=== PATIENT | male | born 1965 | race Caucasian/White ===

== ENCOUNTER 2022-10-14 19:11 | Emergency (ER) | payer MEDICAID, SELFPAY ==
--- NOTE | ~2022-10-14 | XR_ITS ---
EXAMINATION: XR CHEST CLINICAL INFORMATION: Chest pain COMPARISON: None TECHNIQUE: 2 views of the chest were obtained. FINDINGS: Lungs are clear. No focal consolidation or mass. Normal pulmonary vascularity. No pleural effusion or pneumothorax. Normal heart size. No acute osseous abnormality. XR/XR chest 2V IMPRESSION: No acute pulmonary disease.
--- NOTE | ~2022-10-14 | CT_ITS ---
EXAMINATION: CTA CHEST, ABDOMEN AND PELVIS WITH CONTRAST CLINICAL INFORMATION: Reason for Exam cp radiating to shoulder, hx pe, fm hx aneurysm COMPARISON: No pertinent prior studies are available for comparison. TECHNIQUE: Multidetector volumetric imaging was performed from the thoracic inlet through the pubic symphysis following administration of 90 mL of Omnipaque 350. Sagittal and coronal reformatted images were obtained on the technologist's workstation. Additional 2-D coronal and sagittal reformatted images and axial 3-D maximum intensity projection MIP images are generated on the CT workstation. This CT examination was performed using dose optimization techniques as appropriate, variously including the following: *Automated exposure control *Adjustment of mA and/or kV according to patient size (this includes techniques or standardized protocols for targeted exams where dose is matched to indication/reason for exam; i.e. extremities or head) *Use of iterative reconstruction technique DLP: 773 mGy-cm QUALITY OF STUDY: The bolus is satisfactory for diagnosis of pulmonary emboli. VASCULAR FINDINGS: The thoracic aorta appears unremarkable without evidence of aneurysm, dissection or intramural hematoma. There is limitation of evaluation of the aortic root because of marked motion artifact as this was not a cardiac gated study. Three-vessel branching pattern of the aortic arch is seen with widely patent great vessels. The abdominal aorta and visualized iliofemoral vessels all appear no aortic aneurysm dissection or intramural hematoma is seen. The celiac SMA and ALISSA are all widely patent. There is a single right-sided renal artery and 2 renal arteries on the left that are all widely patent. The pulmonary arteries appear normal and no central or segmental pulmonary emboli are seen. NONVASCULAR FINDINGS: CHEST: Lung: Some right basilar scarring is present. There is a tiny 2 mm perifissural right lower lobe nodule (9:280). No consolidations or worrisome lung masses are seen. Mediastinum: The mediastinum is unremarkable. The central vascular structures are unremarkable. No hilar or mediastinal lymphadenopathy. Pericardium/Pleura: No significant effusion. No pleural mass or thickening. Chest Wall/Axilla: Unremarkable ABDOMEN/PELVIS: Peritoneal Space: No significant free air or free fluid identified. Liver, Gallbladder, Biliary Tree: The liver is normal in size, shape, and attenuation. No focal hepatic lesion or biliary ductal dilatation is present. The gallbladder is unremarkable with no evidence of radiopaque gallstones, gallbladder wall thickening, or obvious pericholecystic inflammatory changes. Pancreas: Unremarkable Spleen: Unremarkable Adrenal Glands: Unremarkable Kidneys and Ureters: The kidneys are normal in size, shape, and attenuation. No hydronephrosis, hydroureter, or calculi seen. No perinephric stranding. Bladder: Unremarkable Gastrointestinal Tract: The small and large bowel are unremarkable. The appendix is is not seen but there is no evidence of appendicitis. Abdominal Wall: No significant hernia is appreciated. Lymph Nodes: No lymphadenopathy. PELVIC VISCERA: Unremarkable OSSEUS STRUCTURES: Mild degenerative changes are noted in the spine. No bony destructive lesions are seen. CT/CT angio chest PE protocol IMPRESSION: 1. No evidence of aortic aneurysm, dissection or intramural hematoma. 2. No evidence of pulmonary emboli. 3. No significant abnormality is seen in the chest, abdomen or pelvis. 4. 2 mm right lower lobe nodule needs no further Fleischner guidelines were followed. VTE: Negative
[2022-10-14 20:23] VITALS: BP 183/113; PULSE 98; RESP 20; TEMP 36.8; O2SAT 98; BMI 28.0
--- NOTE | 2022-10-14 20:27 | ED_ITS ---
HPI - General Adult General Chief complaint: Chest Pain Stated complaint: ?Lung blood clot/Pain Time Seen by Provider: 10/14/22 21:08 Source: patient Mode of arrival: ambulatory Limitations: no limitations Related Data Previous Rx's Medication Instructions Recorded cyclobenzaprine 10 mg tablet 10 mg PO TID PRN muscle spasm #14 10/14/22 tabs Allergies Allergy/AdvReac Type Severity Reaction Status Date / Time allopurinol [ALLOPURINOL] Allergy Intermediate UNKNOWN Unverified 08/04/20 15:42 codeine [CODEINE] Allergy Intermediate ITCHY Unverified 08/04/20 15:42 Codeine Sulfate Allergy Unknown Uncoded 01/09/12 00:00 PMFSH Social History Social History Advance Directives: No Advance Directives Information Provided: No Physical Exam ED Vital Signs: Vital Signs - 24 hr 10/14/22 20:23 10/14/22 23:36 10/15/22 00:24 Temperature 98.3 F 98.1 F 97.9 F Pulse Rate 98 93 78 Respiratory Rate 20 13 14 Blood Pressure 183/113 H 165/95 H 132/82 Pulse Oximetry 98 97 96 Oxygen Delivery Method Room Air Room Air BMI result Body Mass Index 28.0 Course Course Course Narrative: RME completed by Lola Teran PA-C. Patient is a 56 year old male with a histroy of PE presenting to the emergency department with left sided chest pain. CBC, CMP, d dimer, chest x-ray, ekg, and COVID/Influenza/RSV swab ordered. Pat ient to be placed back in the waiting room pending results and bed availability. Patient seen and discharged by [facility] who created and completed a separate note. Medications Administered Discontinued Medications Generic Name Dose Route Start Last Admin Trade Name Freq PRN Reason Stop Dose Admin Cyclobenzaprine HCl 10 mg 10/14/22 23:55 10/15/22 00:27 Cyclobenzaprine Hcl 10 Mg Tablet PO 10/14/22 23:56 10 mg ONCE ONE Administration Iohexol 100 ml 10/14/22 23:02 10/14/22 23:02 Iohexol 350 Mg/Ml 100 Ml Infus..Btl IV 10/14/22 23:03 90 ml ONCE ONE Administration Medical Decision Making Lab Data Result diagrams: 10/14/22 20:42 10/14/22 20:42 Labs: Lab Results 10/14/22 10/14/22 10/14/22 Range/Units 20:42 20:42 20:42 WBC 9.4 (4.8-10.8) X10*3/uL RBC 5.69 (4.60-5.80) X10*6/uL Hgb 16.9 (14.0-18.0) g/dl Hct 49.2 (42.0-52.0) % MCV 86.5 (80.0-98.0) fL MCH 29.7 (27.0-33.0) pg MCHC 34.3 (31.0-36.0) g/dl RDW 12.9 (11.0-16.0) % Plt Count 183 (160-400) X10*3/uL MPV 8.6 L (9.4-12.4) fL Immature Gran % (Auto) 0.3 (0.0-0.4) % Neut % (Auto) 75.5 H (45-73) % Lymph % (Auto) 13.1 L (20-40) % [place] % (Auto) 7.6 (2-11) % Eos % (Auto) 3.1 (0-4) % Baso % (Auto) 0.4 (0-2) % Lymph # (Auto) 1.2 (1.2-4.9) X10*3/uL [place] # (Auto) 0.7 (0.1-1.2) X10*3/uL Eos # (Auto) 0.3 (0.0-0.4) X10*3/uL Baso # (Auto) 0.0 (0.0-0.2) X10*3/uL Abs Immat Gran (auto) 0.03 (0.00-0.03) X10*3/uL Absolute Neuts (auto) 7.1 (2.0-8.3) x10*3/uL Absolute Nucleated RBC 0.000 (0.0-0.012) X10*3/uL Nucleated RBC % (auto) 0.0 (0.0-0.2) /100WBC D-Dimer High Sensitivty < 150 NG/ML Sodium 139 (135-145) mmol/L Potassium 4.3 (3.3-5.1) mmol/L Chloride 101 (96-108) mmol/L Carbon Dioxide 25 (22-29) mmol/L Anion Gap 17 (12-20) BUN 16 (9-16) mg/dL Creatinine 1.25 (0.5-1.4) mg/dL Estim Creat Clear Calc 73.4 Estimated GFR > 60 Random Glucose 118 H (60-115) mg/dL Calcium 9.8 (8.4-10.2) mg/dL Total Bilirubin 0.5 (0.0-1.0) mg/dL AST 25 (5-37) U/L ALT 21 (0-40) U/L Alkaline Phosphatase 83 (39-117) U/L Troponin I High Sens (<3.5-35.0) ng/L Total Protein 8.0 (6.5-8.0) g/dL Albumin 4.8 (3.5-5.0) g/dL Influenza Type A (PCR) (Negative) Influenza Type B (PCR) (Negative) RSV RNA Qual (PCR) (Negative) SARS-CoV-2 RNA (RT-PCR) (Negative) 10/14/22 10/14/22 Range/Units 20:42 20:42 WBC (4.8-10.8) X10*3/uL RBC (4.60-5.80) X10*6/uL Hgb (14.0-18.0) g/dl Hct (42.0-52.0) % MCV (80.0-98.0) fL MCH (27.0-33.0) pg MCHC (31.0-36.0) g/dl RDW (11.0-16.0) % Plt Count (160-400) X10*3/uL MPV (9.4-12.4) fL Immature Gran % (Auto) (0.0-0.4) % Neut % (Auto) (45-73) % Lymph % (Auto) (20-40) % [place] % (Auto) (2-11) % Eos % (Auto) (0-4) % Baso % (Auto) (0-2) % Lymph # (Auto) (1.2-4.9) X10*3/uL [place] # (Auto) (0.1-1.2) X10*3/uL Eos # (Auto) (0.0-0.4) X10*3/uL Baso # (Auto) (0.0-0.2) X10*3/uL Abs Immat Gran (auto) (0.00-0.03) X10*3/uL Absolute Neuts (auto) (2.0-8.3) x10*3/uL Absolute Nucleated RBC (0.0-0.012) X10*3/uL Nucleated RBC % (auto) (0.0-0.2) /100WBC D-Dimer High Sensitivty NG/ML Sodium (135-145) mmol/L Potassium (3.3-5.1) mmol/L Chloride (96-108) mmol/L Carbon Dioxide (22-29) mmol/L Anion Gap (12-20) BUN (9-16) mg/dL Creatinine (0.5-1.4) mg/dL Estim Creat Clear Calc Estimated GFR Random Glucose (60-115) mg/dL Calcium (8.4-10.2) mg/dL Total Bilirubin (0.0-1.0) mg/dL AST (5-37) U/L ALT (0-40) U/L Alkaline Phosphatase (39-117) U/L Troponin I High Sens < 3.5 (<3.5-35.0) ng/L Total Protein (6.5-8.0) g/dL Albumin (3.5-5.0) g/dL Influenza Type A (PCR) NEGATIVE (Negative) Influenza Type B (PCR) NEGATIVE (Negative) RSV RNA Qual (PCR) NEGATIVE (Negative) SARS-CoV-2 RNA (RT-PCR) NEGATIVE (Negative) Discharge Plan Discharge Clinical Impression: Chest pain, Costalchondritis, Muscle strain Patient Disposition: Home, Self-Care Instructions: Chest Pain (ED), Costochondritis (ED), Noncardiac Chest Pain (ED), Chest Wall Pain (ED) Additional Instructions: You were evaluated for chest pain radiating to your scapula and shoulder. CT PE and abdominal angio study is negative for pulmonary embolisms and aneurysms. Your CT scans were negative for acute findings requiring emergent intervention. Your injuries are consistent with a muscular skeletal strain. Please take Flexeril 10 mg every 8 hours as needed for muscle spasms. Follow-up with primary care physician as needed. Return to the emergency department for any new, concerning, or worsening symptoms. Prescriptions: New cyclobenzaprine 10 mg tablet 10 mg PO TID PRN (Reason: muscle spasm) Qty: 14 0RF Interventions: ED Discharge Assessment Last Done: 10/15/22 00:32 Discharge Date/Time: 10/15/22 00:33
--- NOTE | 2022-10-14 20:27 | ECG_ITS ---
Test Reason : CHEST PAIN Blood Pressure : / mmHG Vent. Rate : 084 BPM Atrial Rate : 084 BPM P-R Int : 158 ms QRS Dur : 084 ms QT Int : 366 ms P-R-T Axes : 057 001 040 degrees QTc Int : 432 ms Normal sinus rhythm Minimal voltage criteria for LVH, may be normal variant ( R in aVL ) Borderline ECG No previous ECGs available Referred By: Lola Teran Electronically Signed By:DEYANIRA EPPERSON MD
[2022-10-14 20:47] LABS: MANUAL DIFF FLAG NO
[2022-10-14 20:50] LABS: Basophils Percent Auto 0.4 % (0-2); Eosinophils Absolute Auto 0.3 X10*3/uL (0.0-0.4); Eosinophils Percent Auto 3.1 % (0-4); Hematocrit 49.2 % (42.0-52.0); Hemoglobin 16.9 g/dl (14.0-18.0); Imm Gran Abs Auto 0.03 X10*3/uL (0.00-0.03); Imm Gran Pct Auto 0.3 % (0.0-0.4); Lymphocytes Absolute Auto 1.2 X10*3/uL (1.2-4.9); Lymphocytes Percent Auto 13.1 % (20-40); Mean Corpuscular HGB Conc 34.3 g/dl (31.0-36.0); Mean Corpuscular Hemoglobin 29.7 pg (27.0-33.0); Mean Corpuscular Volume 86.5 fL (80.0-98.0); Mean Platelet Volume 8.6 fL (9.4-12.4); Monocytes Absolute Auto 0.7 X10*3/uL (0.1-1.2); Monocytes Percent Auto 7.6 % (2-11); Neutrophils Absolute Auto 7.1 x10*3/uL (2.0-8.3); Neutrophils Percent Auto 75.5 % (45-73); Platelet Count 183 X10*3/uL (160-400); Red Blood Count 5.69 X10*6/uL (4.60-5.80); Red Cell Distribution Width 12.9 % (11.0-16.0); White Blood Count 9.4 X10*3/uL (4.8-10.8)
[2022-10-14 21:06] LABS: Alanine Aminotransferase 21 U/L (0-40); Albumin Level 4.8 g/dL (3.5-5.0); Alkaline Phosphatase 83 U/L (39-117); Anion Gap 17 (12-20); Aspartate Amino Transferase 25 U/L (5-37); Bilirubin Total 0.5 mg/dL (0.0-1.0); Blood Urea Nitrogen 16 mg/dL (9-16); Calcium 9.8 mg/dL (8.4-10.2); Carbon Dioxide 25 mmol/L (22-29); Chloride 101 mmol/L (96-108); Creatinine Clr Calc Pharmacy 73.4; Estimated Glomerular Filt Rate > 60; Glucose Random 118 mg/dL (60-115); Potassium 4.3 mmol/L (3.3-5.1); Sodium 139 mmol/L (135-145)
[2022-10-14 21:08] LABS: Troponin-I High Sensitivity < 3.5 ng/L (<3.5-35.0)
[2022-10-14 21:09] LABS: D Dimer High Sensitivity < 150 NG/ML
--- NOTE | 2022-10-14 21:09 | ED.CHESTPAIN ---
HPI - Chest Pain General Chief Complaint: Chest Pain Stated Complaint: ?Lung blood clot/Pain Time Seen by Provider: 10/14/22 21:08 Source: patient Mode of arrival: ambulatory Limitations: no limitations History of Present Illness HPI narrative: 56-year-old male presents with sharp progressively worsening left-sided chest pain radiating to his scapula and shoulder. States the pain started while he was working on the [employer], he has a concern because he does have past medical history of pulmonary embolism, and a significant family history of aneurysm. He states pain is worse when he is laying down, on movement, and inspiration. MD complaint: chest pain and chest discomfort Pertinent past history: other (History PE) Onset (ago): day(s) (2) Timing of current episode: constant and increasing Prior episodes: Yes Pain location: left chest Pain radiation: left arm, left shoulder and left scapula Severity: severe Pain scale (0-10): 9 Quality: heaviness, sharp and tearing Relieving factors: nothing Exacerbating factors: inspiration and movement Context: history of DVT/PE Treatment prior to arrival: none Risk Factors Coronary artery disease risk factors: hypertension Thoracic aortic dissection risk factors: family history of thoracic aortic aneurysm Pulmonary embolism risk factors: history of pulmonary embolism Related Data Previous Rx's Medication Instructions Recorded cyclobenzaprine 10 mg tablet 10 mg PO TID PRN muscle spasm #14 10/14/22 tabs Allergies Allergy/AdvReac Type Severity Reaction Status Date / Time allopurinol [ALLOPURINOL] Allergy Intermediate UNKNOWN Unverified 08/04/20 15:42 codeine [CODEINE] Allergy Intermediate ITCHY Unverified 08/04/20 15:42 Codeine Sulfate Allergy Unknown Uncoded 01/09/12 00:00 Review of Systems Review of Systems: Constitutional: No Fever, No Chills ENT/Mouth: No Ear Pain, No Hoarseness, No sore throat Eyes: No Eye Pain, No Swelling, No Redness, No Foreign Body Cardiovascular: Positive Chest Pain, No SOB Respiratory: No Cough, No Dyspnea Gastrointestinal: No Nausea, No Vomiting, No Diarrhea, No abdominal Pain Genitourinary: No Dysuria, No Hematuria Musculoskeletal: positive shoulder and scapula pain, No Myalgias, No Joint Swelling Skin: No Skin lacerations, No rash Neuro: No Weakness, No Numbness, No Paresthesias, No Loss of Consciousness, No Dizziness, No Headache Psych: No Anxiety/Panic, No Depression Heme/Lymph: no easy bruising, no Lymphadenopathy Endocrine: No Polyuria, No Polydipsia Yes all other systems are reviewed and are negative [facility] Past Medical History Attestation statement: The following information was validated with the patient. Source: old records reviewed Social History Social History Advance Directives: No Advance Directives Information Provided: No Physical Exam Vital Signs: Vital Signs: Last Vital Signs Temp 98.3 F 10/14/22 20:23 Pulse 98 10/14/22 20:23 Resp 20 10/14/22 20:23 BP 183/113 H 10/14/22 20:23 Pulse Ox 98 10/14/22 20:23 O2 Del Method 10/14/22 20:23 BMI result Body Mass Index 28.0 Appearance: Alert. Oriented X3. Mild distress. Eyes: Pupils equal, round and reactive to light. EOMI. ENT: Pharynx normal. Neck: Normal inspection. Neck supple. No nuchal rigidity. CVS: Normal heart rate and rhythm. Pulses normal. Respiratory: No respiratory distress. Breath sounds normal. Abdomen: Soft and nontender. Skin: Skin warm and dry. Normal skin color. Normal skin turgor. Extremities: No lower extremity edema. Full range of motion to all extremities. Strength 5/5. Gait well-balanced well coordinated. Neuro: No motor deficit. No sensory deficit. Cranial nerves 2-12 intact. Course Course Course Narrative: 56-year-old male presents with left-sided chest pain radiating to his scapula and shoulder. States that it feels like a ripping sharp pain that worsens as he is laying down, on inspiration and on movement. While it is highly likely that this could be of muscular skeletal injury, he does have a significant family history of aneurysm, and blood clot, he also has had pulmonary embolism in his 30s. He is hypertensive, and obese. He is tachycardic on presentation with a heart rate on exertion in the 110s, and at rest in the 90s. Labs were drawn while patient was in the emergency department waiting room, does have a negative troponin with relatively normal lab values. Wells PE score 6. Will order CT PE and aortic aneurysm study. 23:30 CT PE and CTA abdomen pelvis negative for acute findings. Will treat with ibuprofen and Flexeril. Patient agrees to follow-up with primary care physician. Patient verbalized understanding of and agrees plan of care discharge home. Verbalized understanding of signs and symptoms indicating need for emergent intervention. Medications Administered Discontinued Medications Generic Name Dose Route Start Last Admin Trade Name Freq PRN Reason Stop Dose Admin Iohexol 100 ml 10/14/22 23:02 10/14/22 23:02 Iohexol 350 Mg/Ml 100 Ml Infus..Btl IV 10/14/22 23:03 90 ml ONCE ONE Administration MDM - Chest Pain Differential Diagnosis Differential diagnosis: Likely fracture of rib, pneumothorax, unstable angina pectoris, atypical chest pain, st elevation myocardial infarction, costochondritis and chest pain Differential diagnosis: Aneurysm, PE Medical Records Data Attestation: I reviewed the patient's medical records. Lab Data Attestation: I reviewed the patient's lab results. Result diagrams: 10/14/22 20:42 10/14/22 20:42 Labs: Lab Results 10/14/22 10/14/22 10/14/22 Range/Units 20:42 20:42 20:42 WBC 9.4 (4.8-10.8) X10*3/uL RBC 5.69 (4.60-5.80) X10*6/uL Hgb 16.9 (14.0-18.0) g/dl Hct 49.2 (42.0-52.0) % MCV 86.5 (80.0-98.0) fL MCH 29.7 (27.0-33.0) pg MCHC 34.3 (31.0-36.0) g/dl RDW 12.9 (11.0-16.0) % Plt Count 183 (160-400) X10*3/uL MPV 8.6 L (9.4-12.4) fL Immature Gran % (Auto) 0.3 (0.0-0.4) % Neut % (Auto) 75.5 H (45-73) % Lymph % (Auto) 13.1 L (20-40) % [place] % (Auto) 7.6 (2-11) % Eos % (Auto) 3.1 (0-4) % Baso % (Auto) 0.4 (0-2) % Lymph # (Auto) 1.2 (1.2-4.9) X10*3/uL [place] # (Auto) 0.7 (0.1-1.2) X10*3/uL Eos # (Auto) 0.3 (0.0-0.4) X10*3/uL Baso # (Auto) 0.0 (0.0-0.2) X10*3/uL Abs Immat Gran (auto) 0.03 (0.00-0.03) X10*3/uL Absolute Neuts (auto) 7.1 (2.0-8.3) x10*3/uL Absolute Nucleated RBC 0.000 (0.0-0.012) X10*3/uL Nucleated RBC % (auto) 0.0 (0.0-0.2) /100WBC D-Dimer High Sensitivty < 150 NG/ML Sodium 139 (135-145) mmol/L Potassium 4.3 (3.3-5.1) mmol/L Chloride 101 (96-108) mmol/L Carbon Dioxide 25 (22-29) mmol/L Anion Gap 17 (12-20) BUN 16 (9-16) mg/dL Creatinine 1.25 (0.5-1.4) mg/dL Estim Creat Clear Calc 73.4 Estimated GFR > 60 Random Glucose 118 H (60-115) mg/dL Calcium 9.8 (8.4-10.2) mg/dL Total Bilirubin 0.5 (0.0-1.0) mg/dL AST 25 (5-37) U/L ALT 21 (0-40) U/L Alkaline Phosphatase 83 (39-117) U/L Troponin I High Sens (<3.5-35.0) ng/L Total Protein 8.0 (6.5-8.0) g/dL Albumin 4.8 (3.5-5.0) g/dL Influenza Type A (PCR) (Negative) Influenza Type B (PCR) (Negative) RSV RNA Qual (PCR) (Negative) SARS-CoV-2 RNA (RT-PCR) (Negative) 10/14/22 10/14/22 Range/Units 20:42 20:42 WBC (4.8-10.8) X10*3/uL RBC (4.60-5.80) X10*6/uL Hgb (14.0-18.0) g/dl Hct (42.0-52.0) % MCV (80.0-98.0) fL MCH (27.0-33.0) pg MCHC (31.0-36.0) g/dl RDW (11.0-16.0) % Plt Count (160-400) X10*3/uL MPV (9.4-12.4) fL Immature Gran % (Auto) (0.0-0.4) % Neut % (Auto) (45-73) % Lymph % (Auto) (20-40) % [place] % (Auto) (2-11) % Eos % (Auto) (0-4) % Baso % (Auto) (0-2) % Lymph # (Auto) (1.2-4.9) X10*3/uL [place] # (Auto) (0.1-1.2) X10*3/uL Eos # (Auto) (0.0-0.4) X10*3/uL Baso # (Auto) (0.0-0.2) X10*3/uL Abs Immat Gran (auto) (0.00-0.03) X10*3/uL Absolute Neuts (auto) (2.0-8.3) x10*3/uL Absolute Nucleated RBC (0.0-0.012) X10*3/uL Nucleated RBC % (auto) (0.0-0.2) /100WBC D-Dimer High Sensitivty NG/ML Sodium (135-145) mmol/L Potassium (3.3-5.1) mmol/L Chloride (96-108) mmol/L Carbon Dioxide (22-29) mmol/L Anion Gap (12-20) BUN (9-16) mg/dL Creatinine (0.5-1.4) mg/dL Estim Creat Clear Calc Estimated GFR Random Glucose (60-115) mg/dL Calcium (8.4-10.2) mg/dL Total Bilirubin (0.0-1.0) mg/dL AST (5-37) U/L ALT (0-40) U/L Alkaline Phosphatase (39-117) U/L Troponin I High Sens < 3.5 (<3.5-35.0) ng/L Total Protein (6.5-8.0) g/dL Albumin (3.5-5.0) g/dL Influenza Type A (PCR) NEGATIVE (Negative) Influenza Type B (PCR) NEGATIVE (Negative) RSV RNA Qual (PCR) NEGATIVE (Negative) SARS-CoV-2 RNA (RT-PCR) NEGATIVE (Negative) Imaging Data Chest x-ray: Attestation: I personally reviewed and interpreted this imaging study as follows: Radiologist's impression: EXAMINATION: XR CHEST CLINICAL INFORMATION: Chest pain COMPARISON: None TECHNIQUE: 2 views of the chest were obtained. FINDINGS: Lungs are clear. No focal consolidation or mass. Normal pulmonary vascularity.? No pleural effusion or pneumothorax. Normal heart size. No acute osseous abnormality. XR/XR chest 2V IMPRESSION: No acute pulmonary disease. CT PE, CT angio abdomen pelvis: Attestation: I personally reviewed and interpreted this imaging study as follows: Radiologist's impression: QUALITY OF STUDY: The bolus is satisfactory for diagnosis of pulmonary emboli. VASCULAR FINDINGS: The thoracic aorta appears unremarkable without evidence of aneurysm, dissection or intramural hematoma. There is limitation of evaluation of the aortic root because of marked motion artifact as this was not a cardiac gated study. Three-vessel branching pattern of the aortic arch is seen with widely patent great vessels. The abdominal aorta and visualized iliofemoral vessels all appear no aortic aneurysm dissection or intramural hematoma is seen. The celiac SMA and ALISSA are all widely patent. There is a single right-sided renal artery and 2 renal arteries on the left that are all widely patent. The pulmonary arteries appear normal and no central or segmental pulmonary emboli are seen. NONVASCULAR FINDINGS: CHEST: Lung: Some right basilar scarring is present. There is a tiny 2 mm perifissural right lower lobe nodule (9:280). No consolidations or worrisome lung masses are seen. Mediastinum: The mediastinum is unremarkable. The central vascular structures are unremarkable. No hilar or mediastinal lymphadenopathy. Pericardium/Pleura: No significant effusion. No pleural mass or thickening. Chest Wall/Axilla: Unremarkable ABDOMEN/PELVIS: Peritoneal Space: No significant free air or free fluid identified. Liver, Gallbladder, Biliary Tree: The liver is normal in size, shape, and attenuation. No focal hepatic lesion or biliary ductal dilatation is present. The gallbladder is unremarkable with no evidence of radiopaque gallstones, gallbladder wall thickening, or obvious pericholecystic inflammatory changes. Pancreas: Unremarkable Spleen: Unremarkable Adrenal Glands: Unremarkable Kidneys and Ureters: The kidneys are normal in size, shape, and attenuation. No hydronephrosis, hydroureter, or calculi seen. No perinephric stranding. Bladder: Unremarkable Gastrointestinal Tract: The small and large bowel are unremarkable. The appendix is is not seen but there is no evidence of appendicitis. Abdominal Wall: No significant hernia is appreciated. Lymph Nodes: No lymphadenopathy. PELVIC VISCERA: Unremarkable OSSEUS STRUCTURES: Mild degenerative changes are noted in the spine. No bony destructive lesions are seen. CT/CT angio chest PE protocol IMPRESSION: 1.? No evidence of aortic aneurysm, dissection or intramural hematoma. 2.? No evidence of pulmonary emboli. 3.? No significant abnormality is seen in the chest, abdomen or pelvis. 4.? 2 mm right lower lobe nodule needs no further ? Fleischner guidelines were followed. ? VTE: Negative ECG Data ECG #1: Attestation: I personally reviewed and interpreted this ECG as follows: ECG interpretation date: 10/14/22 ECG interpretation time: 20:32 Prior ECG tracings: not available for review Interpretation: Vent. rate 84 BPM DE interval 158 ms QRS duration 84 ms QT/QTc 366/432 ms P-R-T axes 57 1 40 Normal sinus rhythm Minimal voltage criteria for LVH, may be normal variant ( R in aVL ) Borderline ECG No previous ECGs available Scores Wells PE Clinical symptoms of DVT: 3 Heart rate > 100 p/min: 1.5 Previous DVT or PE: 1.5 Score: 6.0 2-tier Risk: likely risk (17-53%) 3-tier Risk: high risk (78.4%) Discharge Plan Discharge Clinical Impression: Chest pain, Costalchondritis, Muscle strain Patient Disposition: Home, Self-Care Instructions: Chest Pain (ED), Costochondritis (ED), Noncardiac Chest Pain (ED), Chest Wall Pain (ED) Additional Instructions: You were evaluated for chest pain radiating to your scapula and shoulder. CT PE and abdominal angio study is negative for pulmonary embolisms and aneurysms. Your CT scans were negative for acute findings requiring emergent intervention. Your injuries are consistent with a muscular skeletal strain. Please take Flexeril 10 mg every 8 hours as needed for muscle spasms. Follow-up with primary care physician as needed. Return to the emergency department for any new, concerning, or worsening symptoms. Prescriptions: New cyclobenzaprine 10 mg tablet 10 mg PO TID PRN (Reason: muscle spasm) Qty: 14 0RF
[2022-10-14 21:26] LABS: Influenza A PCR NEGATIVE (Negative); Influenza B PCR NEGATIVE (Negative); Resp Syncy Virus RNA Qual PCR NEGATIVE (Negative); SARS COV2 PCR INHOUSE NEGATIVE (Negative)
[2022-10-14] MEDS: iohexoL 350 MG/ML 100 ML INFUS..BTL IV (23:02)
[2022-10-14 23:36] VITALS: BP 165/95; PULSE 93; RESP 13; TEMP 36.7; O2SAT 97
[2022-10-15 00:24] VITALS: BP 132/82; PULSE 78; RESP 14; TEMP 36.6; O2SAT 96
[2022-10-15] MEDS: Cyclobenzaprine HCl 10 MG TABLET PO (00:27)
== END 2022-10-15 00:33 | disposition home or self-care (01) ==
PROVIDERS: Physician Assistant Medical; Emergency Provider Internal Medicine; PCP Internal Medicine
DX: R07.89 Other chest pain (principal); M94.0 Chondrocostal junction syndrome [Tietze]; Z20.822 Contact with and (suspected) exposure to COVID-19; Z79.899 Other long term (current) drug therapy
CPT/HCPCS: 0241U; 71046; 71275; 74174; 80053; 84484; 85025; 85379; 93005; 99284; Q9967

== ENCOUNTER 2024-03-27 10:44 | Outpatient (REF) | payer MEDICAID, SELFPAY ==
[2024-03-27 15:25] LABS: Alanine Aminotransferase 23 U/L (0-40); Albumin Level 4.9 g/dL (3.5-5.0); Alkaline Phosphatase 72 U/L (39-117); Aspartate Amino Transferase 27 U/L (5-37); Bilirubin Direct 0.2 mg/dL (0.0-0.5); Bilirubin Total 0.5 mg/dL (0.0-1.0); Total Protein 8.2 g/dL (6.5-8.0)
== END 2024-03-27 10:45 | disposition home or self-care (01) ==
LOC: HO.CHCLDS 10:44
PROVIDERS: Visit Provider Family Medicine
DX: F11.20 Opioid dependence, uncomplicated (principal)
CPT/HCPCS: 36415; 80076

== ENCOUNTER 2025-10-11 10:35 | Outpatient (REF) | payer MEDICAID, SELFPAY ==
[2025-10-11 17:35] LABS: Alanine Aminotransferase 21 U/L (0-40); Albumin Level 4.7 g/dL (3.5-5.0); Alkaline Phosphatase 81 U/L (39-117); Aspartate Amino Transferase 27 U/L (5-37); Total Protein 7.4 g/dL (6.5-8.0)
== END 2025-10-11 10:36 | disposition home or self-care (01) ==
LOC: HO.CHCLDS 10:35
PROVIDERS: Visit Provider Family Medicine
DX: F11.20 Opioid dependence, uncomplicated (principal)
CPT/HCPCS: 36415; 80076